=== PATIENT | male | born 1945 | race Caucasian/White ===

== ENCOUNTER 2018-02-10 00:16 | Inpatient (IN) | payer MEDICARE, OTHER ==
[~2018-02-10] VITALS: Ht 170.2 cm; Wt 72.6 kg
[2018-02-10 00:39] VITALS: BP 116/66
[2018-02-10 01:18] LABS: ANION GAP 6 mmol/L (7-16); BUN 13 mg/dL (7-18); CALCIUM 8.4 mg/dL (8.5-10.1); CHLORIDE 92 mmol/L (98-107); CO2 28 mmol/L (21-32); CREATININE 0.8 mg/dL (0.6-1.3); GLUCOSE 96 mg/dL (70-99); HEMATOCRIT 38.2 % (42.0-52.0); HEMOGLOBIN 13.2 gm/dL (14.0-18.0); MCH 31.7 pg (26.0-34.0); MCHC 34.6 g/dL (28.0-37.0); MCV 91.8 fL (80.0-100.0); NUCLEATED RBCS 0 /100WBC; PLATELET COUNT* 277 thou/uL (150-400); POTASSIUM 4.4 mmol/L (3.5-5.1); RBC 4.16 mil/uL (4.50-6.00); RDW-CV 13.2 % (10.5-14.5); SODIUM 126 mmol/L (136-145); WBC 10.8 thou/uL (4.0-11.0)
[2018-02-10 01:21] LABS: INR 1.1; PROTIME 11.4 Seconds (9.20-11.50)
[2018-02-10 01:29] LABS: ALBUMIN 2.8 g/dL (3.4-5.0); ALKALINE PHOSPHATASE 70 U/L (46-116); NT-PRO BRAIN NAT PEPTIDE 212 pg/mL (<300); SGOT 13 U/L (15-37); SGPT 17 U/L (30-65); TOTAL BILIRUBIN 0.6 mg/dL (<0.1-1.0); TOTAL PROTEIN 6.8 g/dL (6.4-8.2); TROPONIN-I LEVEL <0.06 ng/mL (<0.06)
[2018-02-10 02:29] LABS: URINE BILIRUBIN NEGATIVE (Negative); URINE BLOOD NEGATIVE (Negative); URINE CLARITY CLEAR; URINE COLOR YELLOW; URINE GLUCOSE-RANDOM NEGATIVE (Negative); URINE KETONES 1+ (Negative); URINE LEUKOCYTES-REFLEX NEGATIVE (Negative); URINE NITRITE-REFLEX NEGATIVE (Negative); URINE PROTEIN NEGATIVE (Negative)
[2018-02-10 02:55] LABS: ABSOLUTE LYMPHOCYTES 1.3 thou/uL (0.8-5.3); ABSOLUTE MONOCYTES 1.2 thou/uL (0.0-1.2); ABSOLUTE NEUTROPHILS 8.3 thou/uL (1.6-8.1)
[2018-02-10 02:56] LABS: PLATELET ESTIMATE ADEQUATE
[2018-02-10 07:28] VITALS: BP 126/66
[2018-02-10 07:54] VITALS: BP 126/66
[2018-02-10 09:25] VITALS: BP 139/74
[2018-02-10 15:54] VITALS: BP 132/68
[2018-02-11] VITALS: BP 126/61
[2018-02-11 08:00] VITALS: BP 116/71
--- NOTE | 2018-02-11 11:21 | EKG ---
[place] [address] ELECTROCARDIOGRAM REPORT Name: CHAVEZ VACA Room: [address] IN 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: Gera TRAMMELL : 1945 Requested By: Lexi Ruby Order Number: [id number] MD: Julio César Parekh Measurements Intervals [place] Rate: 88 P: 75 [place]: 143 QRS: 81 QRSD: 139 T: 63 QT: 371 QTc: 449 Interpretive Statements Sinus rhythm Right bundle branch block No previous ECG available for comparison Electronically Signed On 02-11-2018 11:21:11 ENTRY LEVEL PROJECT COORDINATOR by Julio César Parekh [email or web address] <ELECTRONICALLY SIGNED> By: Julio César Parekh MD, [facility] 02/11/18 1121 0103 010 Julio César Parekh MD, FACC /EPI
[2018-02-11] MEDS ORDERED: LEVAQUIN 750 M750 MG PO (13:18)
[2018-02-11] MEDS ORDERED: PREDNISONE 20 M20 MG PO (13:18)
[2018-02-11] MEDS ORDERED: ADVAIR HFA 230M12 GM INH (13:19)
[2018-02-11] MEDS ORDERED: VENTOLIN HFA 1818 GM INH (13:19)
[2018-02-11 13:32] VITALS: BP 116/71
[2018-02-11 14:52] VITALS: BP 116/71
== END 2018-02-11 15:37 | disposition still patient (30) | DRG 189 ==
LOC: M.ERS 00:16 → M.3W 02:58 → M.TBA-ER 02:58 → M.3W 08:13
PROVIDERS: Emergency Medicine
DX: J96.01 Acute respiratory failure with hypoxia (principal); J44.1 Chronic obstructive pulmonary disease with (acute) exacerbation; E87.1 Hypo-osmolality and hyponatremia; F17.210 Nicotine dependence, cigarettes, uncomplicated; Z83.3 Family history of diabetes mellitus; Z82.49 Family history of ischemic heart disease and other diseases of the circulatory system

== ENCOUNTER 2020-02-01 15:21 | Emergency (ER) | payer OTHER ==
[~2020-02-01] VITALS: Ht 170.2 cm; Wt 72.6 kg
[~2020-02-01 15:21] MED LIST: ADVAIR HFA 230M12 GM INH; LEVAQUIN 750 M750 MG PO; PREDNISONE 20 M20 MG PO; VENTOLIN HFA 1818 GM INH
[2020-02-01 16:37] LABS: ABSOLUTE LYMPHOCYTES 1.1 thou/uL (0.8-5.3); ABSOLUTE MONOCYTES 1.2 thou/uL (0.0-1.2); ABSOLUTE NEUTROPHILS 5.9 thou/uL (1.6-8.1); BASOPHILS 0.4 %; EOSINOPHILS 0.2 %; HEMATOCRIT 39.9 % (42.0-52.0); LYMPHOCYTES 13.9 %; MCH 31.6 pg (26.0-34.0); MCV 90.3 fL (80.0-100.0); MONOCYTES 14.1 %; MPV 7.3 fl. (7.2-11.1); NUCLEATED RBCS 0 /100WBC; PLATELET COUNT* 248 thou/uL (150-400); POLYS 71.4 %; RBC 4.42 mil/uL (4.50-6.00); WBC 8.2 thou/uL (4.0-11.0)
[2020-02-01 16:44] LABS: CALCIUM 7.8 mg/dL (8.5-10.1); CREATININE 0.7 mg/dL (0.6-1.3); POTASSIUM 4.5 mmol/L (3.5-5.1)
[2020-02-01 16:55] LABS: ALBUMIN 2.8 g/dL (3.4-5.0); TOTAL BILIRUBIN 0.6 mg/dL (<0.1-1.0); TOTAL PROTEIN 6.9 g/dL (6.4-8.2)
[2020-02-01] MEDS ORDERED: PREDNISONE 20 M20 MG PO (16:55)
[2020-02-01] MEDS ORDERED: VENTOLIN HFA 1818 GM INH (16:55)
[2020-02-01] MEDS ORDERED: ZPAK PO (16:55)
[2020-02-01 17:53] VITALS: BP 144/72
--- NOTE | 2020-02-02 18:20 | EKG ---
[place] [address] ELECTROCARDIOGRAM REPORT Name: LIOCHAVEZ Room: [facility]#: [id number] Admission: 02/01/20 Attend Phys: Discharge: 02/01/20 Date of : 45 Date of Service: 02/01/20 1633 Report #: [id number] THIS REPORT FOR: //name// [facility] ED Test Date: 2020-02-01 Test Time: 16:33:37 Pat Name: CHAVEZ VACA Department: Room: Gender: Chrome Tanner: [facility] : 1945 Requested By: Amalia Mcpherson Order Number: [id number] MD: Erasto Pulido Measurements Intervals [place] Rate: 78 P: 65 [place]: 152 QRS: 70 QRSD: 134 T: 60 QT: 372 QTc: 424 Interpretive Statements Sinus rhythm Probable left atrial enlargement Right bundle branch block Minimal ST elevation, inferior leads Compared to ECG 02/10/2018 01:03:07 ST (T wave) deviation now present Electronically Signed On 02-02-2020 18:20:34 LIFTER DRIVER by Erasto Pulido [email or web address] <ELECTRONICALLY SIGNED> By: Johnny Pulido MD, [facility] 02/02/20 1820 1633 1633 Johnny Pulido MD, [facility] /EPI
== END 2020-02-01 17:53 | disposition home or self-care (01) ==
LOC: M.ERS 15:21
PROVIDERS: Nurse Practitioner Family
DX: U07.1 COVID-19 (principal); E87.1 Hypo-osmolality and hyponatremia; J44.9 Chronic obstructive pulmonary disease, unspecified; Z79.899 Other long term (current) drug therapy

== ENCOUNTER → 2020-06-29 | Outpatient (CLI) | payer OTHER ==
[~2020-06-29] MED LIST changes: +ZPAK PO
== END ==
LOC: M.CT 09:33
PROVIDERS: ATTEND Family Medicine
DX: J43.9 Emphysema, unspecified (principal); Z87.891 Personal history of nicotine dependence; I25.10 Atherosclerotic heart disease of native coronary artery without angina pectoris; J47.9 Bronchiectasis, uncomplicated